=== PATIENT | female | born 1965 | race Caucasian/White ===

== ENCOUNTER 2021-08-01 16:54 | Emergency (ER) | payer OTHER, SELFPAY ==
--- NOTE | 2021-08-01 16:56 | ED.SKABFB ---
HPI - Skin/Abscess/Foreign Bdy General Chief complaint: Wound/Laceration Stated complaint: left foot infected toe Time Seen by Provider: 08/01/21 16:56 Source: patient and RN notes reviewed History of Present Illness HPI narrative: Patient is a 55-year-old female who presents the urgent care with complaints of a possible infection to the left great toe. Patient states that it was kind of bothering her for the last week. States that she went to have a pedicure done yesterday and noticed swelling and pus to the toe. Denies any fever, chills, nausea or vomiting. Currently denies any pain. Denies of any use of [id number] medication for symptom relief. No other acute complaints. No acute distress noted. Patient aware of the plan of care. Some parts of this dictation were generated by voice recognition software and may contain typographical and/or grammatical inaccuracies. Related Data Home Medications Medication Instructions Recorded Confirmed amlodipine 10 mg PO DAILY 08/01/21 08/01/21 aripiprazole 20 mg PO DAILY 08/01/21 08/01/21 duloxetine 30 mg PO DAILY 08/01/21 08/01/21 montelukast [Singulair] 10 mg PO DAILY 08/01/21 08/01/21 pregabalin 75 mg PO BID 08/01/21 08/01/21 triamterene-hydrochlorothiazid 1 tablet PO QAM 08/01/21 08/01/21 Allergies Allergy/AdvReac Type Severity Reaction Status Date / Time Penicillins Allergy Severe HIVES, RASH Verified 03/30/20 14:14 morphine Allergy Mild Itching Verified 08/01/21 17:06 lisinopril AdvReac Cough Verified 08/01/21 17:06 Review of Systems Review of Systems: CONSTITUTIONAL: Denies fever, chills, or sweats. EYES: Denies visual changes, redness, or discharge. ENT: Denies rhinorrhea, congestion, sore throat, or otalgia. CARDIOVASCULAR: Denies chest pain, palpitations, or edema. RESPIRATORY: Denies cough or dyspnea. GASTROINTESTINAL: Denies abdominal pain, nausea, vomiting, or diarrhea. GENITOURINARY: Denies dysuria or hematuria. SKIN: Reports of a infection to the left great toe MUSCULOSKELETAL: Denies back pain, joint pain, or myalgia. NEUROLOGIC: Denies headache, numbness, or weakness. All other systems reviewed are negative, except as documented in HPI. PMFSH Comments At the time of my signature, I reviewed and agree with the nursing past medical, surgical, social, and family history. There is no relevant family history pertinent to the patient complaint. Exam Narrative: GENERAL: This is a well-nourished, well-developed patient, in no apparent distress. HEAD: normocephalic, atraumatic. EYES: PERRL. Sclera clear/white. Vision is grossly intact. EARS: External ears normal NOSE: External nose normal with no obvious nasal discharge, nares without redness, no rhinorrhea. THROAT: Mucous membranes moist NECK: Neck supple CARDIOVASCULAR: Regular rate and rhythm without murmurs, gallops, or rubs. RESPIRATORY: Clear to auscultation. Breath sounds equal bilaterally. No wheezes, rales, or rhonchi. SKIN: Moderate lateral left great toe paronychia without pain or surrounding erythema NEURO: awake, alert, and oriented to person, place and time. There were no obvious focal neurologic abnormalities. EXTREMITIES: No clubbing, cyanosis, or edema. Course Course Level of Care: Express Care Visit Vital Signs Vital signs: Vital Signs Temperature 98.7 F 08/01/21 17:00 Pulse Rate 74 08/01/21 17:00 Respiratory Rate 20 08/01/21 17:00 Blood Pressure 155/75 H 08/01/21 17:00 Pulse Oximetry 97 08/01/21 17:00 Temperature 98.7 F 08/01/21 17:10 Pulse Rate 74 08/01/21 17:10 Respiratory Rate 20 08/01/21 17:10 Blood Pressure 155/75 H 08/01/21 17:10 Pulse Oximetry 97 08/01/21 17:10 Reviewed-patient is informed that they may have pre-hypertension or hypertension based on a blood pressure reading in the department. I recommend the patient call the primary care provider listed on their discharge instructions or a physician of their choice this week to arrange fo
[2021-08-01 17:00] VITALS: BP 155/75; PULSE 74; RESP 20; TEMP 37.1; O2SAT 97
[2021-08-01 17:10] VITALS: BP 155/75; PULSE 74; RESP 20; TEMP 37.1; O2SAT 97
== END 2021-08-01 17:21 | disposition home or self-care (01) ==
PROVIDERS: Emergency Provider Nurse Practitioner Family; PCP Internal Medicine
DX: L03.032 Cellulitis of left toe (principal); I10 Essential (primary) hypertension; K21.9 Gastro-esophageal reflux disease without esophagitis; M19.90 Unspecified osteoarthritis, unspecified site; M79.7 Fibromyalgia; M32.9 Systemic lupus erythematosus, unspecified
CPT/HCPCS: 10160; 99213; G0463